=== PATIENT | female | born 1945 | race Caucasian/White ===

== ENCOUNTER 2016-04-21 08:29 | Emergency (ER) | payer MEDICARE ==
[2016-04-21 08:59] VITALS: BP 143/49
[2016-04-21] MEDS ORDERED: predniSONE TAB* 20 MG PO ONE (09:19)
[2016-04-21] MEDS ORDERED: Ipratropium 0.5MG/2.5ML NEB* 0.5 MG/2.5 ML NEB.SOLN INH ONE (09:19)
[2016-04-21] MEDS ORDERED: Albuterol 2.5 MG/3 ML NEB.SOL* (0.083%) INH ONE (09:19)
--- NOTE | 2016-04-21 10:08 | UC ---
Respiratory Complaint HPI - HPI Summary HPI Summary: 70 yo female with a 2 weeks hx of progressively worsening cough/congestion/ wheezing Particularly bad the pas 3-4 days facial pressure and pain/nasal congestion/Dyspnea on Exertion - History of Current Complaint Chief Complaint: UCRespiratory Stated Complaint: SINUS PRESSURE Time Seen by Provider: 04/21/16 09:14 Hx Obtained From: Patient Hx Last Menstrual Period: n/a Onset/Duration: Gradual Onset, Lasting Weeks Timing: Constant Severity Initially: Mild Severity Currently: Moderate Pain Intensity: 2 Pain Scale Used: 0-10 Numeric Character: Cough: Productive Aggravating Factors: Nothing Alleviating Factors: Nothing Associated Signs And Symptoms: Positive: Dyspnea - with erertion, Wheezing, Nasal Congestion, Sinus Discomfort - Allergies/Home Medications Allergies/Adverse Reactions: Allergies Allergy/AdvReac Type Severity Reaction Status Date / Time grass and dogs Allergy Unknown Uncoded 02/26/16 09:34 Reaction Details Home Medications: Home Medications Lidocaine 2% JELLY* 1 applic TOPICAL TID PRN 04/21/16 [History Confirmed ] PMH/Surg Hx/FS Hx/Imm Hx Previously Healthy: Yes Endocrine History Of: Denies: Diabetes Cardiovascular History Of: Denies: Hypertension, Pacemaker/ICD, Congestive Heart Failure Respiratory History Of: Reports: COPD, Bronchitis GI/ History Of: Denies: Renal Disease - Surgical History Surgical History: Yes Surgery Procedure, Year, and Place: Appendectomy, Tubal ligation. CATARACTS 1990 BILATERAL. spinal nerve burning - Family History Known Family History: Positive: Hypertension, Respiratory Disease - Social History Alcohol Use: Rare Alcohol Amount: 3-4 beers Substance Use Type: None Smoking Status (MU): Heavy Every Day Tobacco Smoker Type: Cigarettes Amount Used/How Often: 2 PPD Length of Time of Smoking/Using Tobacco: 52 Years Have You Smoked in the Last Year: Yes - Immunization History Most Recent Influenza Vaccination: December 2015 Review of Systems Constitutional: Negative Skin: Negative Eyes: Negative ENT: Sore Throat, Nasal Discharge Respiratory: Shortness Of Breath, Cough Cardiovascular: Negative Gastrointestinal: Negative Genitourinary: Negative Motor: Negative Neurovascular: Negative Musculoskeletal: Negative Neurological: Negative Psychological: Negative All Other Systems Reviewed And Are Negative: Yes Physical Exam Triage Information Reviewed: Yes Appearance: Well-Appearing, No Pain Distress, Well-Nourished Vital Signs: Initial Vital Signs Temp 97.7 F 04/21/16 08:50 Pulse 90 04/21/16 08:50 Resp 20 04/21/16 08:50 BP 143/49 04/21/16 08:50 Pulse Ox 87 04/21/16 08:50 Vital Signs Reviewed: Yes Eyes: Positive: Conjunctiva Clear ENT: Positive: Hearing grossly normal, Nasal congestion, Nasal drainage. Negative: Trismus, Muffled/hoarse voice Neck: Positive: Supple, Nontender Respiratory: Positive: No respiratory distress, No accessory muscle use, Wheezing Cardiovascular: Positive: RRR, No Murmur Musculoskeletal: Positive: ROM Intact, No Edema Neurological: Positive: Alert. Negative: Fatigued Psychological Exam: Normal Skin Exam: Normal UC Diagnostic Evaluation - Laboratory O2 Sat by Pulse Oximetry: 87 - low/hypoxic - Radiology Xray Interpretation: No Acute Changes Radiology Interpretation Completed By: Radiologist - c/w COPD Re-Evaluation - Re-Evaluation First Eval Re-Evaluation Time: 10:14 Change: Improved - subjectively better/ no wheezing , Pox unchanged, ?RLL rales Respiratory Course/Dx - Course Course Of Treatment: Pt informed of her low pulse OX. States she doen't feel SOB. Desires out pt rx. will recheck soon with her PMD - Differential Dx/Diagnosis Provider Diagnoses: acute exacerbation of COPD Discharge - Discharge Plan Condition: Stable Disposition: HOME Prescriptions: Azithromycin TAB* [Zithromax TAB*] 250 mg PO DAILY #6 tab Prednisone [Deltasone] 40 mg PO DAILY #8 tab Patient Education Materials: Acute Bronchitis (ED) Referrals: Jeny Moran PA [Primary Care Provider] - 4 Days Additional Instructions: use your inhaler 2 puffs 4x day for 5 days RECHECK FOR NEW OR WORSENING SYMPTOMS
--- NOTE | 2016-04-21 10:42 | RAD ---
HISTORY: Cough COMPARISONS: March 11, 2014 VIEWS: 2: Frontal dual-energy and lateral views of the chest. FINDINGS: CARDIOMEDIASTINAL SILHOUETTE: The cardiomediastinal silhouette is normal. SERENITY: The serenity are normal. PLEURA: The costophrenic angles are sharp. No pleural abnormalities are noted. LUNG PARENCHYMA: There is hyperinflation with flattening of the diaphragm and expansion of the AP diameter of the chest. ABDOMEN: The upper abdomen is clear. There is no subphrenic gas. BONES AND SOFT TISSUES: No bone or soft tissue abnormalities are noted. OTHER: None. IMPRESSION: HYPERINFLATION, CONSISTENT WITH COPD. NO ACTIVE CARDIOPULMONARY DISEASE.
== END 2016-04-21 10:48 | disposition home or self-care (01) ==
LOC: UCCORT 08:29
DX: J44.1 Chronic obstructive pulmonary disease with (acute) exacerbation (principal); F17.210 Nicotine dependence, cigarettes, uncomplicated
CPT/HCPCS: 71020; 99212; G0463; J7512; J7644

== ENCOUNTER 2016-10-11 09:06 | Emergency (ER) | payer MEDICARE ==
[2016-10-11 09:58] VITALS: BP 146/70
--- NOTE | 2016-10-11 10:00 | UC ---
Dizzy HPI HPI Summary: PT HAS HAD INTERMITTENT DIZZINESS FOR SEVERAL MONTHS. LAST NIGHT WAS SUDDENLY QUITE SEVERE. BROKE OUT INTO A SWEAT. LAID DOWN AND WENT TO SLEEP. THIS MORNING IS STILL DIZZY. NO CP. HAS SOB AND IS WORKING TO BREATHE. HAS SOME NAUSEA BUT STATES THIS IS NOT UNCOMMON FOR HER SHE HAS SOME CHRONIC "STOMACH ISSUES". PT HAS UNTREATED COPD AND STILL SMOKES. BP AT HOME WAS 158/78. PT DENIES ANY H/ O HTN. - History Of Current Complaint Chief Complaint: UCDizziness Stated Complaint: DIZZY, LIGHTHEADED Time Seen by Provider: 10/11/16 09:14 Hx Obtained From: Patient Hx Last Menstrual Period: n/a Onset/Duration: Sudden Onset, Lasting Hours, Still Present Timing: Constant Severity Initially: Moderate Severity Currently: Moderate Pain Intensity: 0 Pain Scale Used: 0-10 Numeric Character: Room Spinning Aggravating Factor(s): Nothing Alleviating Factor(s): Nothing Associated Signs And Symptoms: Positive: Diaphoresis, SOB - Allergies/Home Medications Allergies/Adverse Reactions: Allergies Allergy/AdvReac Type Severity Reaction Status Date / Time Ondansetron [From Zofran] Allergy Unknown Verified 10/11/16 09:13 Reaction Details grass and dogs Allergy Unknown Uncoded 10/11/16 09:11 Reaction Details PMH/Surg Hx/FS Hx/Imm Hx Respiratory History: COPD - Surgical History Surgical History: Yes Surgery Procedure, Year, and Place: Appendectomy, Tubal ligation. CATARACTS 1990 BILATERAL. spinal nerve burning - Family History Known Family History: Positive: Cardiac Disease, Hypertension, Respiratory Disease - Social History Alcohol Use: Rare Alcohol Amount: 3-4 beers Substance Use Type: None Smoking Status (MU): Heavy Every Day Tobacco Smoker Type: Cigarettes Amount Used/How Often: 2 PPD Length of Time of Smoking/Using Tobacco: 52 Years Have You Smoked in the Last Year: Yes - Immunization History Most Recent Influenza Vaccination: December 2015 Review of Systems Constitutional: Other - SWEATS Respiratory: Shortness Of Breath Cardiovascular: Negative Gastrointestinal: Nausea Neurological: Other - DIZZY All Other Systems Reviewed And Are Negative: Yes Physical Exam Triage Information Reviewed: Yes Appearance: No Pain Distress, Well-Nourished, Other: - BREATHING HEAVY Vital Signs: Initial Vital Signs Temp 97.7 F 10/11/16 09:09 Pulse 93 06/30/17 09:09 Resp 20 10/11/16 09:09 BP 155/58 10/11/16 09:09 Pulse Ox 96 10/11/16 09:09 Vital Signs Reviewed: Yes Eyes: Positive: Conjunctiva Clear ENT: Positive: Hearing grossly normal Neck: Positive: Supple, Nontender, No Lymphadenopathy Respiratory: Positive: Decreased breath sounds, Accessory muscle use, Plerual rub - ANTERIOR CHEST, RIGHT>LEFT Cardiovascular Exam: Normal Abdomen Description: Positive: Soft, Other: - MILDLY TENDER DIFFUSELY Musculoskeletal: Positive: No Edema Neurological: Positive: Alert Psychological: Positive: Age Appropriate Behavior Skin: Negative: rashes Diagnostics - EKG Cardiac Rate: NL - 83 bpm Cardiac Rhythm: Sinus: Normal Ectopy: None ST Segment: Non-Specific - MINIMAL ST DEPRESSION INFERIOR LEADS Dizzy Course/Dx - Differential Dx/Diagnosis Provider Diagnoses: DIZZINESS, SOB - Physician Notifications Discussed Patient Care With: DR. ROYAL - TO [facility] BY PR[facility] CAR Time Discussed With Above Provider: 10:00 Instructed by Provider To: MD Will See In ED Discharge - Discharge Plan Condition: Stable Disposition: AGAINST MEDICAL ADVICE Referrals: Jeny Moran PA [Primary Care Provider] -
== END 2016-10-11 09:58 | disposition left against medical advice (07) ==
LOC: UCCORT 09:06
DX: R42 Dizziness and giddiness (principal); R06.02 Shortness of breath; J44.9 Chronic obstructive pulmonary disease, unspecified; F17.210 Nicotine dependence, cigarettes, uncomplicated
CPT/HCPCS: 93005; 99213; G0463

== ENCOUNTER 2019-03-11 07:43 | Emergency (ER) | payer MEDICARE ==
[2019-03-11 07:55] VITALS: BP 160/62
--- NOTE | 2019-03-11 08:07 | UC ---
Respiratory Complaint HPI - HPI Summary HPI Summary: 73 year old female with oxygen dependent (3L NC) COPD presents with a days history of non-productive cough, no chest pain. Denies sinus congestion, fever, headache. - History of Current Complaint Chief Complaint: UCRespiratory Stated Complaint: UPPER RESP CONCERN Time Seen by Provider: 03/11/19 08:04 Hx Obtained From: Patient Hx Last Menstrual Period: n/a Onset/Duration: Sudden Onset, Lasting Days - one Pain Intensity: 0 - Allergies/Home Medications Allergies/Adverse Reactions: Allergies Allergy/AdvReac Type Severity Reaction Status Date / Time grass and dogs Allergy Unknown Uncoded 10/11/16 09:11 Reaction Details Home Medications: Home Medications Albuterol Sulfate 1 dose INH Q6H PRN 03/11/19 [History Confirmed 03/11/19] Albuterol Sulfate [Proair Digihaler] 2 puff INH Q6H PRN 03/11/19 [History Confirmed 03/11/19] Ascorbic Acid TAB* [Vitamin C TAB*] 1,000 mg PO DAILY 03/11/19 [History Confirmed 03/11/19] Aspirin [Jovanna Aspirin EC Low Dose 81 MG] 1 tab PO DAILY 03/11/19 [History Confirmed 03/11/19] Fluticasone Furoate [Arnuity Ellipta] 100 mcg IH DAILY 03/11/19 [History Confirmed 03/11/19] Fluticasone NASAL SPRAY 50MCG* [Flonase NASAL SPRAY 50MCG*] 1 - 2 puff INH DAILY 03/11/19 [History Confirmed 03/11/19] Magnesium Oxide [Magnesium] 500 mg PO DAILY 03/11/19 [History Confirmed 03/11/19 ] PARoxetine HCL TAB* [Paxil TAB*] 1 tab PO DAILY 03/11/19 [History Confirmed ] Pravastatin Sodium 1 tab PO QAM 03/11/19 [History Confirmed 03/11/19] Ropinirole HCl 2 tab PO BEDTIME 03/11/19 [History Confirmed 03/11/19] Tramadol HCl 1 tab PO BID 03/11/19 [History Confirmed 03/11/19] Umeclidin/Vilant 62.5 MDI(NF) [ANORO 62.5/25 Ellipta DEVICE (NF)] 1 inh INH DAILY 03/11/19 [History Confirmed 03/11/19] PMH/Surg Hx/FS Hx/Imm Hx Previously Healthy: Yes Respiratory History: COPD - Surgical History Surgical History: Yes Surgery Procedure, Year, and Place: Appendectomy. Tubal ligation. Bilateral cataracts 1989. spinal nerve burning - Family History Known Family History: Positive: Cardiac Disease, Hypertension, Respiratory Disease - Social History Alcohol Use: None Alcohol Amount: 3-4 beers Substance Use Type: None Smoking Status (MU): Former Smoker Type: Cigarettes Amount Used/How Often: 2 PPD Length of Time of Smoking/Using Tobacco: 52 Years Have You Smoked in the Last Year: Yes When Did the Patient Quit Smoking/Using Tobacco: 2016 - Immunization History Most Recent Influenza Vaccination: December 2015 Review of Systems All Other Systems Reviewed And Are Negative: Yes Constitutional: Negative: Fever, Chills, Fatigue Skin: Negative: Rash, Bruising Eyes: Positive: Negative ENT: Negative: Epistaxis, Sore Throat, Ear Ache, Nasal Discharge, Sinus Congestion, Sinus Pain/Tenderness Respiratory: Positive: Shortness Of Breath - at baseline, Cough - non-productive Cardiovascular: Negative: Palpitations, Chest Pain Gastrointestinal: Negative: Abdominal Pain, Vomiting, Diarrhea, Nausea Genitourinary: Positive: Negative Motor: Positive: Negative Neurovascular: Positive: Negative Musculoskeletal: Positive: Negative Neurological: Positive: Negative Psychological: Positive: Negative Is Patient Immunocompromised?: No Physical Exam Triage Information Reviewed: Yes Appearance: Well-Appearing, Well-Nourished Vital Signs: Initial Vital Signs Temp 96.3 F 03/11/19 07:52 Pulse 95 03/11/19 07:52 Resp 19 03/11/19 07:52 BP 160/62 03/11/19 07:52 Pulse Ox 97 03/11/19 07:52 Eye Exam: Normal ENT: Positive: Normal ENT inspection - oxygen via nasal canula Neck: Positive: Supple, Nontender, No Lymphadenopathy Respiratory: Positive: Lungs clear, No respiratory distress, Decreased breath sounds - bilaterally, E>I. Negative: Crackles, Rhonchi, Wheezing Cardiovascular: Positive: RRR, No Murmur Abdomen Description: Positive: Nontender, Soft Musculoskeletal Exam: Normal Neurological Exam: Normal Psychological Exam: Normal Skin Exam: Normal Respiratory Course/Dx - Differential Dx/Diagnosis Differential Diagnosis/HQI/PQRI: Exacerbation Of COPD Provider Diagnosis: Acute bronchitis, Blood pressure elevated without history of HTN Discharge ED - Sign-Out/Discharge Documenting (check all that apply): Patient Departure All imaging exams completed and their final reports reviewed: No Studies - Discharge Plan Condition: Stable Disposition: HOME Prescriptions: Azithromycin TAB* [Zithromax TAB (Z-BOOKER) 250 mg #6 tabs] 2 tab PO .TODAY, THEN 1 DAILY #1 booker Patient Education Materials: Acute Bronchitis (ED) Referrals: Jaye Leslie [Primary Care Provider] - Additional Instructions: Take the antibiotics as prescribed. Use your inhalers and nebulizer as prescribed. If you develop a fever, increase in shortness of breath or worsening symptoms, follow-up with your Primary Care Physician. Your blood pressure was slightly elevated today, I recommend following up with your physician for this within the next week. - Billing Disposition and Condition Condition: STABLE Disposition: Home
== END 2019-03-11 08:29 | disposition home or self-care (01) ==
LOC: UCCORT 07:43
DX: J20.9 Acute bronchitis, unspecified (principal); J44.0 Chronic obstructive pulmonary disease with (acute) lower respiratory infection; Z91.09 Other allergy status, other than to drugs and biological substances; Z79.51 Long term (current) use of inhaled steroids; Z87.891 Personal history of nicotine dependence
CPT/HCPCS: 99212; G0463

== ENCOUNTER 2019-04-08 07:51 | Emergency (ER) | payer MEDICARE ==
--- OUTSIDE RECORDS SUMMARY | 2019-04-08 08:02 | XMS REPORT | Continuity of Care Document ---
:1945 External Reference #:[id number] Author Name Alessio Whatley MD Address [address] [facility] [place] [address] Care Team Providers Name Role Phone Keisha Stewart MD - Internal Medicine Care Team Information Coning Machine Operator Arian Beltran MD - Care Team Information Coning Machine Operator [phone] Gastroenterology Vivienne Stock MD - Obstetrics & Care Team Information Coning Machine Operator Gynecology Tresa Gillespie R., MD - Emergency Care Team Information Coning Machine Operator Medicine Cornelio Lehman MD - Internal Care Team Information Coning Machine Operator Medicine Problems Active Problems Provider Date Benign neoplasm of colon Michael Chi MD Onset: 03/21/2017 Benign neoplasm of stomach Michael Chi MD Onset: 04/23/2017 Gastroesophageal reflux disease Michael Chi MD Onset: 04/23/2017 Edema Keisha Stewart MD Onset: 05/27/2017 Hyperlipidemia Keisha Stewart MD Onset: 06/12/2017 Vitamin D deficiency Keisha Stewart MD Onset: 06/12/2017 Liver function tests abnormal Keisha Stewart MD Onset: 06/12/2017 Chronic obstructive lung disease Keisha Stewart MD Onset: 06/12/2017 Arthralgia of the pelvic region and thigh Keisha Stewart MD Onset: 10/24/2017 Lumbosacral stenosis Keisha Stewart MD Onset: 10/24/2017 Constipation Arian Beltran MD Onset: 01/20/2018 Dizziness and giddiness Aida Bryant PA Onset: 05/05/2018 Social History Type Date Description Comments Sex Unknown Tobacco Use Start: Unknown End: Former Cigarette Smoker Unknown 2 Packs Daily Smokeless Tobacco Never Used Smokeless Tobacco ETOH Use Occasionally consumes on the weekends beer Recreational Drug Use Denies Drug Use Tobacco Use Start: Unknown End: Patient is a former smoker Smoking Status Reviewed: 03/19/19 Patient is a former smoker Exercise Type/Frequency Does not exercise Allergies, Adverse Reactions, Alerts Description No Known Drug Allergies Medications Active Medications SIG Qnty Indications Ordering Date Provider Nebulizer dispense one kit 1units Cortney, 01/19/2019 Kit/Tubing/Mouthpiece Dx: COPD MD Rodriguez Kit Diclofenac Sodium apply 2-3 gms to 100gm M54.6 Keisha Stewart, 11/03/2018 3% back two times a MD Gel day Trazodone HCL 1 tablet by mouth 60tabs Keisha Stewart, 07/31/2018 100mg at at bedtime MD Tablets Triamcinolone apply to neck, 80gm R21 Keisha Stewart, 07/27/2018 Acetonide back, arms, MD 0.1% Cream abdomen and legs daily as needed for itching. Ropinirole HCL take 2 at night 60tabs Alessio Whatley, 07/27/2018 0.25mg before bedtime MD Tablets Gabapentin take 1 capsule by 180caps G25.81 Keisha Stewart, 05/06/2018 300mg mouth Every MD Capsules Afternoon And 2 Capsules AT Bedtime Anoro Ellipta 1 inhalation 90units J44.9 Toby Blanchard, 05/05/2018 every day. 62.5-25mcg/Inh Aerosol Magnesium Oil rub on legs once Gagen, 04/27/2018 daily. MS Ashley, [employer] OPERATOR-C, CNM Pravastatin Sodium take 1 tablet by 30tabs Keisha Stewart, 06/12/2017 20mg mouth every in MD Tablets the morning Proair HFA inhale 2 puffs by 8.5units J44.9 Toby Blanchard, 06/02/2017 108(90Base) mouth every 6 MD mcg/Act Aerosol hours if needed for shortness of breath Flonase spray 1-2 sprays 16units Keisha Stewart, 03/12/2017 50mcg/Act in each nostril Suspension once daily Arnuity Ellipta inhale 1 puff 30units J44.9 Toby Blanchard, 02/03/2017 once daily Rinse 100mcg/Act Aerosol mouth after use Ranitidine 150 1 by mouth every 90tabs Keisha Stewart, 11/06/2016 Maximum Strength day 150mg Tablets Omeprazole take one capsule 90caps Nayeli, 11/06/2016 20mg by mouth every MD Danisha, Capsules DR day 30 min. PHD before breakfast Oxygen Use 3 L/min. Toby Blanchard, 10/29/2016 Diagnosis: COPD Albuterol Sulfate use 1 vial every 150ml Toby Blanchard, 10/23/2016 6 hours as needed 0.63mg/3ML Nebulizer for shortness of breath. Aspirin Adult Low 1 by mouth every Unknown Strength day 81mg Chewtabs Vitamin C 1 by mouth every Unknown 1000mg day Tablets OTC Allergy 1 po daily Unknown Tramadol HCL take 1 tablet po Unknown 50mg 4 times daily for Tablets pain Vitamin D 1 by mouth every Unknown 2000Unit day Capsules OTC Womens Laxative as needed Unknown Multi For Her 1 tab by mouth Unknown Tablets every daily Paroxetine HCL 1 by mouth every Vivienne Stock 10mg day MD [place] Tablets Nyamyc prn Vivienne Stock [id number] MD [place]na Powder Magnesium 1 by mouth every Unknown 500mg other day Capsules Metronidazole Unknown 0.75% Gel History Medications Venlafaxine HCL ER take one at hs 30caps F33.1 Keisha Stewart MD 2018 - 10/26/2018 37.5mg Caps ER 24HR Medications Administered in Office Medication SIG Qnty Indications Ordering Provider Date Depomedrol 40mg/1cc Stacey Giron MD 02/04/2019 (methylprednisolone acetate) Injection Immunizations CPT Code Status Date Vaccine Reaction Lot # 21264 Given 01/27/2019 Shingrix Zoster Vaccine (HZV), received at RA/222 Recombinant, Subunit, Adjuvante 39529 Given 01/19/2019 Influenza Virus Vaccine, Quadrivalent, 36 Mos+, .5ML [id number] Given 07/27/2018 Pneumococcal Conjugate Vaccine received at RA/222 13 Valent For Intramuscular Use U-Flu Given 01/09/2018 Influenza,Unspecified U-Pneum Given 02/07/2017 Pneumococcal,Unspecified [id number] Given 02/07/2017 Influenza High Dose [id number] Vital Signs Date Vital Result Comment 03/19/2019 10:15am BP Systolic Sitting Left Arm 154 mmHg BP Diastolic Sitting Left Arm 60 mmHg Body Temperature 97.8 F Heart Rate 97 /min Respiratory Rate 30 /min Height 64 inches 5'4" Weight 180.00 lb BMI (Body Mass Index) 30.9 kg/m2 BSA (Body Surface Area) 1.87 m2 [place] body weight in kilograms 54 kg O2 % BldC Oximetry 97 % on 3L O2 02/04/2019 10:08am BP Systolic Sitting Left Arm 146 mmHg BP Diastolic Sitting Left Arm 60 mmHg Respiratory Rate 22 /min Weight 180.00 lb Results Test Acquired Facility Test Result H/L Range Note Date Serum or plasma 11/02/2018 N2N/CCD Import Serum or plasma 6 Low 8-16 anion gap anion gap Co2 SerPl-sCnc 11/02/2018 N2N/CCD Import Co2 SerPl-sCnc 29 21-32 Serum or plasma 11/02/2018 N2N/CCD Import Serum or plasma 104 98-107 chloride chloride measurement measurement Serum or plasma 11/02/2018 N2N/CCD Import Serum or plasma 4.2 3.5-5.1 potassium potassium measurement measurement Sodium SerPl-sCnc 11/02/2018 N2N/CCD Import Sodium SerPl-sCnc 139 136- 145 Serum or plasma 11/02/2018 N2N/CCD Import Serum or plasma 16.0 urea urea nitrogen/creatinine nitrogen/creatinine mass rati mass ratio GFR/Bsa pred.black 11/02/2018 N2N/CCD Import GFR/Bsa pred.black >60 >60 SerPl MDRD-ArVRat SerPl MDRD-ArVRat Estimated 11/02/2018 N2N/CCD Import Estimated 57 >60 glomerular glomerular filtration rate filtration rate (GFR) non-Afr (GFR) non- Serum or plasma 11/02/2018 N2N/CCD Import Serum or plasma 1.0 0.6-1.3 creatinine creatinine measurement measurement (mass/volum (mass/volume) Serum or plasma 11/02/2018 N2N/CCD Import Serum or plasma 16 7-18 urea nitrogen urea nitrogen measurement measurement (mass/vo (mass/volume) Serum or plasma 11/02/2018 N2N/CCD Import Serum or plasma 93 74-106 glucose measurement glucose measurement (mass/volume) (mass/volume) Fibrin D-dimer Feu 11/02/2018 N2N/CCD Import Fibrin D-dimer Feu 1.09 measurement in measurement in platelet poor pl platelet poor plasma (mass/volume) Automated blood 11/02/2018 N2N/CCD Import Automated blood 0.00 nucleated nucleated erythrocyte count erythrocyte count (count (count/volume) Serum or plasma 11/02/2018 N2N/CCD Import Serum or plasma 8.9 8.5-10. calcium measurement calcium measurement 1 (mass/volume) (mass/volume) Serum or plasma 11/02/2018 N2N/CCD Import Serum or plasma 7.5 6.4-8.2 protein measurement protein measurement (mass/volume) (mass/volume) Serum or plasma 11/02/2018 N2N/CCD Import Serum or plasma 3.4 3.4-5.0 albumin measurement albumin measurement (mass/volume) (mass/volume) Serum globulin 11/02/2018 N2N/CCD Import Serum globulin 4.1 1.9-4.3 measurement by measurement by calculation calculation (mass/vo (mass/volume) Serum or plasma 11/02/2018 N2N/CCD Import Serum or plasma 0.8 albumin/globulin albumin/globulin mass ratio mass ratio Serum or plasma 11/02/2018 N2N/CCD Import Serum or plasma 0.5 0.2-1.0 total bilirubin total bilirubin measurement (mass/ measurement (mass/volume) Serum or plasma 11/02/2018 N2N/CCD Import Serum or plasma 14 Low 15-37 aspartate aspartate aminotransferase aminotransferase measure measurement (enzymatic activity/volume) Serum or plasma 11/02/2018 N2N/CCD Import Serum or plasma 23 12-78 alanine alanine aminotransferase aminotransferase measureme measurement (enzymatic activity/volume) Serum or plasma 11/02/2018 N2N/CCD Import Serum or plasma 128 High 45- 117 alkaline alkaline phosphatase phosphatase measurement ( measurement (enzymatic activity/volume) Aot Request 11/02/2018 [facility] Aot Request Test(s) 1, [address] [place] [address] [phone] Tests to be added: ddimer * Miscellaneous 11/02/2018 N2N/CCD Import * Miscellaneous Test(s) studies (set) studies (set) added CBC W/Automated 11/02/2018 [facility] White Blood Count 11.8 K/uL High 3.1-[address] [place] [address] [phone] Red Blood Count 3.87 M/uL Low 3.90-5.40 Hemoglobin 12.2 gm/dL Normal 11.6-15.8 Hematocrit 36.9 % Normal 36.0-46.1 Mean Cell Volume 95.3 fl Normal 80.9-99.0 Mean Corpuscular HGB 31.5 pg Normal 25.9-32.7 Mean Corpuscular HGB Conc 33.1 g/dL Normal 30.8-34.3 Platelet Count 237 K/uL Normal 155-360 Red Cell Distri Width SD 47.1 fl High 36-47 Red Cell Distri Width %CV 13.5 % Normal 11.7-14.4 Mean Platelet Volume 12.3 fl Normal 8.9-12.4 Neut% 74.7 % High 40.4-72.8 Lymph % 11.3 % Low 20.0-42.0 [place] % 9.8 % Normal 4.3-13.2 Eo% 2.9 % Normal 0.0-6.6 Bas% 0.6 % Normal 0.0-1.1 Immature Grans 0.7 % Normal 0.0-5.0 NRBC % 0.0 /100WBC < 10/ 100 WBC Neut# 8.82 K/uL High 1.8-7.0 Lymph # 1.34 K/uL Normal 1.0-4.0 Churchill # 1.16 K/uL High 0.3-0.9 Eos # 0.34 K/uL Normal 0.0-0.5 Baso # 0.07 K/uL Normal 0.0-0.1 Immature Grans Absolute 0.08 K/uL NRBC # 0.00 K/uL Laboratory test 11/02/2018 [facility] D-Dimer, 1.09 Critical [address] Quantitative ug/[place] [address] [phone] Comprehensive 11/02/2018 [facility] Glucose 93 mg/dL Normal 74- Metabolic Panel [address] [place] [address] [phone] BUN 16 mg/dL Normal 7-18 Creatinine 1.0 mg/dL Normal 0.6-1.3 Glom Filtration Rate, Estimate 57 mL/min >60 If >60 mL/min >60 4 BUN/Creat 16.0 ratio Sodium 139 mmol/L Normal 136-145 Potassium 4.2 mmol/L Normal 3.5-5.1 Chloride 104 mmol/L Normal 98-107 Carbon Dioxide 29 mmol/L Normal 21-32 Anion Gap 6 mEq/L Low 8-16 Calcium 8.9 mg/dL Normal 8.5-10.1 Total Protein 7.5 g/dL Normal 6.4-8.2 Albumin 3.4 g/dL Normal 3.4-5.0 Globulin 4.1 g/dL Normal 1.9-4.3 Alb/Glob 0.8 ratio Bilirubin,Total 0.5 mg/dL Normal 0.2-1.0 Sgot/Ast 14 U/L Low 15-37 5 SGPT/Alt 23 U/L Normal 12-78 Alkaline Phosphatase 128 U/L High 45-117 Laboratory test 11/02/2018 [facility] Troponin-I < 0.015 [address] ng/[place] [address] [phone] Automated 11/02/2018 N2N/CCD Import Automated 11.8 High 3.1-10 leukocyte count leukocyte count .7 (number/volume) (number/volume) Blood 11/02/2018 N2N/CCD Import Blood 3.87 Low 3.90-5 erythrocytes erythrocytes .40 automated count automated count (number/volume) (number/volume) Blood hemoglobin 11/02/2018 N2N/CCD Import Blood hemoglobin 12.2 11.6-1 measurement measurement 5.8 (mass/volume) (mass/volume) Hct VFr Bld Auto 11/02/2018 N2N/CCD Import Hct VFr Bld Auto 36.9 36.0-4 6.1 Automated 11/02/2018 N2N/CCD Import Automated 95.3 80.9-9 erythrocyte mean erythrocyte mean 9.0 corpuscular corpuscular volume (MCV volume (MCV) measurement Automated 11/02/2018 N2N/CCD Import Automated 31.5 25.9-3 erythrocyte mean erythrocyte mean 2.7 corpuscular corpuscular hemoglobin hemoglobin (mass per erythrocyte) Automated 11/02/2018 N2N/CCD Import Automated 33.1 30.8-3 erythrocyte mean erythrocyte mean 4.3 corpuscular corpuscular hemoglobin hemoglobin concentration measurement (mass/volume) Automated blood 11/02/2018 N2N/CCD Import Automated blood 237 155-36 platelet count platelet count 0 (count/volume) (count/volume) Automated 11/02/2018 N2N/CCD Import Automated 47.1 High 36-47 erythrocyte erythrocyte distribution distribution width width Automated blood 11/02/2018 N2N/CCD Import Automated blood 0.0 < 10/ nucleated nucleated 100 erythrocyte count erythrocyte WBC as per count as percentage of total leukocytes Automated blood 11/02/2018 N2N/CCD Import Automated blood 0.7 0.0-5. immature immature 0 granulocyte count granulocyte as perc count as percentage of total leukocytes Absolute 11/02/2018 N2N/CCD Import Absolute 8.82 High 1.8-7. neutrophil count neutrophil count 0 Automated blood 11/02/2018 N2N/CCD Import Automated blood 1.34 1.0-4. lymphocyte count lymphocyte count 0 (number/volume) (number/volume) Blood monocytes 11/02/2018 N2N/CCD Import Blood monocytes 1.16 High 0.3- 0. automated count automated count 9 (number/volume) (number/volume) Automated blood 11/02/2018 N2N/CCD Import Automated blood 0.34 0.0-0. eosinophil count eosinophil count 5 Automated blood 11/02/2018 N2N/CCD Import Automated blood 0.07 0.0-0. basophil count basophil count 1 (number/volume) (number/volume) Automated blood 11/02/2018 N2N/CCD Import Automated blood 0.08 immature immature granulocyte count granulocyte (number count (number/volume) Automated 11/02/2018 N2N/CCD Import Automated 0.6 0.0-1. basophil % basophil % 1 Automated 11/02/2018 N2N/CCD Import Automated 2.9 0.0-6. eosinophil % eosinophil % 6 Automated 11/02/2018 N2N/CCD Import Automated 9.8 4.3-13 monocyte % monocyte % .2 Automated blood 11/02/2018 N2N/CCD Import Automated blood 11.3 Low 20.0- 4 lymphocytes/100 lymphocytes/100 2.0 leukocytes leukocytes Automated blood 11/02/2018 N2N/CCD Import Automated blood 74.7 High 40.4- 7 neutrophils/100 neutrophils/100 2.8 leukocytes leukocytes Automated blood 11/02/2018 N2N/CCD Import Automated blood 12.3 8.9-12 platelet mean platelet mean .4 volume volume measurement measurement Automated 11/02/2018 N2N/CCD Import Automated 13.5 11.7-1 erythrocyte erythrocyte 4.4 distribution distribution width ratio width ratio Comprehensive 10/24/2018 [facility] Sodium 141 Normal 135-14 Metabolic Panel [phone] mmol/L 5 Potassium 4.6 mmol/L Normal 3.5-5.0 Chloride 106 mmol/L Normal 101-111 Co2 Carbon Dioxide 26 mmol/L Normal 22-32 Anion Gap 9 mmol/L Normal 2-11 Glucose 102 mg/dL High 70-100 Blood Urea Nitrogen 19 mg/dL Normal 6-24 Creatinine 0.94 mg/dL Normal 0.51-0.95 BUN/Creatinine Ratio 20.2 High 8-20 Calcium 9.4 mg/dL Normal 8.6-10.3 Total Protein 6.6 g/dL Normal 6.4-8.9 Albumin 3.9 g/dL Normal 3.2-5.2 Globulin 2.7 g/dL Normal 2-4 Albumin/Globulin Ratio 1.4 Normal 1-3 Total Bilirubin 0.40 mg/dL Normal 0.2-1.0 Alkaline Phosphatase 107 U/L High 34-104 Alt 19 U/L Normal 7-52 Ast 19 U/L Normal 13-39 Egfr Non- 58.1 >60 Egfr 70.2 >60 7 Laboratory test 10/24/2018 [facility] LDL Cholesterol 117 mg/dL 8 finding [phone] Direct Folate > 20.00 ng/mL >3.99 Vitamin B12 318 pg/mL Normal 180-914 9 CBC W/Automated 10/24/2018 [facility] White 10.4 Normal 3.5-10.8 Diff [phone] Blood 10^3/uL Count Red Blood Count 4.05 10^6/uL Normal 3.70-4.87 Hemoglobin 12.6 g/dL Normal 12.0-16.0 Hematocrit 37 % Normal 35-47 Mean Corpuscular Volume 92 fL Normal 80-97 Mean Corpuscular Hemoglobin 31 pg Normal 27-31 Mean Corpuscular HGB Conc 34 g/dL Normal 31-36 Red Cell Distribution Width 14 % Normal 10-15 Platelet Count 262 10^3/uL Normal 150-450 Mean Platelet Volume 10.4 fL Normal 7.4-10.4 Abs Neutrophils 7.6 10^3/uL Normal 1.5-7.7 Abs Lymphocytes 1.3 10^3/uL Normal 1.0-4.8 Abs Monocytes 0.9 10^3/uL High 0-0.8 Abs Eosinophils 0.4 10^3/uL Normal 0-0.6 Abs Basophils 0.1 10^3/uL Normal 0-0.2 Abs Nucleated RBC 0.0 10^3/uL Granulocyte % 73.8 % Lymphocyte % 12.2 % Monocyte % 9.1 % Eosinophil % 4.2 % Basophil % 0.7 % Nucleated Red Blood Cells % 0.0 Laboratory test 10/13/2018 [facility] Folate > 20.00 ng/mL >3.99 finding [phone] Vitamin B12 381 pg/mL Normal 180-914 10 Lipid Profile 10/13/2018 [facility] Triglycerides 87 mg/dL 11 (Trig/Chol/HDL) [phone] Cholesterol 182 mg/dL 12 HDL Cholesterol 66.5 mg/dL 13 LDL Cholesterol 98 mg/dL 14 Comp Metabolic 10/13/2018 [facility] Sodium 142 mmol/ L Normal 135-145 Panel [phone] Chloride 107 mmol/L Normal 101-111 Co2 Carbon Dioxide 29 mmol/L Normal 22-32 Glucose 98 mg/dL Normal 70-100 Blood Urea Nitrogen 18 mg/dL Normal 6-24 Creatinine 0.90 mg/dL Normal 0.51-0.95 BUN/Creatinine Ratio 20.0 Normal 8-20 Calcium 9.3 mg/dL Normal 8.6-10.3 Total Protein 6.6 g/dL Normal 6.4-8.9 Albumin 3.9 g/dL Normal 3.2-5.2 Globulin 2.7 g/dL Normal 2-4 Albumin/Globulin Ratio 1.4 Normal 1-3 Total Bilirubin 0.40 mg/dL Normal 0.2-1.0 Alkaline Phosphatase 129 U/L High 34-104 Alt 21 U/L Normal 7-52 Ast 20 U/L Normal 13-39 Egfr Non- 61.0 >60 Egfr 73.9 >60 15 Potassium 5.1 mmol/L High 3.5-5.0 Anion Gap 6 mmol/L Normal 2-11 CBC Auto 10/13/2018 [facility] White Blood 11.2 10^3/ uL High 3.5-10.8 Diff [phone] Count Red Blood Count 4.03 10^6/uL Normal 3.70-4.87 Hemoglobin 12.2 g/dL Normal 12.0-16.0 Hematocrit 37 % Normal 35-47 Mean Corpuscular Volume 93 fL Normal 80-97 Mean Corpuscular Hemoglobin 30 pg Normal 27-31 Mean Corpuscular HGB Conc 33 g/dL Normal 31-36 Red Cell Distribution Width 14 % Normal 10-15 Platelet Count 263 10^3/uL Normal 150-450 Mean Platelet Volume 10.0 fL Normal 7.4-10.4 Abs Neutrophils 8.3 10^3/uL High 1.5-7.7 Abs Lymphocytes 1.3 10^3/uL Normal 1.0-4.8 Abs Monocytes 1.0 10^3/uL High 0-0.8 Abs Eosinophils 0.5 10^3/uL Normal 0-0.6 Abs Basophils 0.1 10^3/uL Normal 0-0.2 Abs Nucleated RBC 0.0 10^3/uL Granulocyte % 74.5 % Lymphocyte % 11.5 % Monocyte % 8.8 % Eosinophil % 4.5 % Basophil % 0.7 % Nucleated Red Blood Cells % 0.0 Louisa species 10/02/2018 N2N/CCD Import Louisa species Negative [ Negative] Dna probe Dna probe Lab Results 10/02/2018 N2N/CCD Import Gardnerella Dna Positive High [ Negative] Probe Trichomonas 10/02/2018 N2N/CCD Import Trichomonas Negative [Negative] vaginalis Dna vaginalis Dna detection by detection by probe probe and t and target amplification method 1 TROUBLE BREATHING 2 Tests: ddimer Instructions: 3 <=0.49 ug/mL - Low likelihood of DIC, DVT or Pulmonary Embolism >0.49 ug/mL - Additional testing should be done to rule out DIC, DVT, or Pulmonary embolism as clinically indicated. ([facility] has established a 97.89% negative predictive value for thrombotic disease when a cutoff value of 0.5 ug/mL is used.) 4 Note: Persistent reduction for 3 months or more in an eGFR <60 mL/min/1.73 m2 defines CKD. Patients with eGFR values >/=60 mL/min/1.73 m2 may also have CKD if evidence of persistent proteinuria is present. The original MDRD equation for estimated GFR is not valid for patients less than 18 years of age. Additional information may be found at www.kdoqi.org. 5 Values below the stated reference ranges of AST and ALT can be seen in normal populations. Clinical correlation is suggested. 6 0.0 - 0.045 ng/mL: Normal 0.046 - 0.5 ng/mL: Suggestive 0.6 - 1.5 ng/mL: Consistent 7 Because ethnic data is not always readily available, this report includes an eGFR for both -Americans and non- Americans. The National Kidney Disease Education Program (NKDEP) does not endorse the use of the MDRD equation for patients that are not between the ages of 18 and 70, are , have extremes of body size, muscle mass, or nutritional status, or are non- or non-. According to the National Kidney Foundation, irrespective of diagnosis, the stage of the disease is based on the level of kidney function: Stage Description GFR(mL/min/1.73 m(2)) 1 Kidney damage with normal or decreased GFR 90 2 Kidney damage with mild decrease in GFR 60-89 3 Moderate decrease in GFR 30-59 4 Severe decrease in GFR 15-29 5 Kidney failure <15 (or dialysis) 8 Desirable: <100 Near Optimal: 100-129 Borderline High: 130-159 High: 160-189 Very High: >189 9 Normal Range 180 to 914 Indeterminate Range 145 to 180 Deficient Range <145 10 Normal Range 180 to 914 Indeterminate Range 145 to 180 Deficient Range <145 11 Desirable: <150 Borderline High: 150-199 High: 200-499 Very High: >500 12 Desirable: <200 Borderline High: 200-239 High: >239 13 Low: <40 Desirable: 40-60 High: >60 14 Desirable: <100 Near Optimal: 100-129 Borderline High: 130-159 High: 160-189 Very High: >189 15 Because ethnic data is not always readily available, this report includes an eGFR for both -Americans and non- Americans. The National Kidney Disease Education Program (NKDEP) does not endorse the use of the MDRD equation for patients that are not between the ages of 18 and 70, are , have extremes of body size, muscle mass, or nutritional status, or are non- or non-. According to the National Kidney Foundation, irrespective of diagnosis, the stage of the disease is based on the level of kidney function: Stage Description GFR(mL/min/1.73 m(2)) 1 Kidney damage with normal or decreased GFR 90 2 Kidney damage with mild decrease in GFR 60-89 3 Moderate decrease in GFR 30-59 4 Severe decrease in GFR 15-29 5 Kidney failure <15 (or dialysis) Procedures Date Code Description Status 02/04/2019 34528 Radiology, Elbow Complete Completed 02/04/2019 76659 Injection:Tendon Sheath,Lig. Cyst Completed 12/15/2018 [id number] Mammogram Completed 10/26/2018 05847 Brief Emotional/Behav Assessment W/ Scoring Doc Per Completed Standard Inst 10/22/2018 47453 Spirometry Completed 07/26/2014 [id number] Colonoscopy Completed 01/31/2011 [id number] Colonoscopy Completed 06/18/2005 [id number] Colonoscopy Completed 08/25/2000 [id number] Colonoscopy Completed Medical Devices Description No Information Available Encounters Type Date Location Provider Dx Diagnosis Office Visit 02/04/2019 Orthopaedic Office Stacey Giron, M25.522 Pain in left 10:00a elbow M77.12 Lateral epicondylitis, left elbow M19.012 Primary osteoarthritis, left shoulder Office Visit 01/29/2019 9:30a Walk In [facility], M25.512 Pain in left Clinic POLY Carranza shoulder T80.62xA Other serum reaction due to vaccination, initial encounter Office Visit 01/19/2019 10:00a Pulmonology Aida Bryant, J44.9 Chronic obstructive PA pulmonary disease, unspecified K21.9 Gastro-esophageal reflux disease without esophagitis R91.1 Solitary pulmonary nodule Office Visit 12/04/2018 11:30a Primary Care Jaye Ness M54.6 Pain in thoracic Office H., PA spine I10 Essential (primary) hypertension N18.3 Chronic kidney disease, stage 3 (moderate) Z12.31 Encntr screen mammogram for malignant neoplasm of breast Office Visit 11/03/2018 1:30p Primary Care Ashley Slaughter, M54.6 Pain in Office MS, [employer] O[employer]-C, CNM thoracic spine I10 Essential (primary) hypertension Office Visit 10/26/2018 9:00a Primary Care Ashley Slaughter, J44.9 Chronic Office MS, [employer] OPERATOR-C, CNM obstructive pulmonary disease, unspecified N18.3 Chronic kidney disease, stage 3 (moderate) G25.81 Restless legs syndrome E87.5 Hyperkalemia E78.5 Hyperlipidemia, unspecified E55.9 Vitamin D deficiency, unspecified F33.1 Major depressive disorder, recurrent, moderate Office Visit 10/08/2018 10:00a Arian Starr MD R10.10 Upper abdominal pain, unspecified Assessments Date Code Description Provider 03/19/2019 J44.9 Chronic obstructive pulmonary Alessio Whatley MD disease, unspecified 03/19/2019 K21.9 Gastro-esophageal reflux disease Alessio Whatley MD without esophagitis 03/19/2019 M54.6 Pain in thoracic spine Alessio Whatley MD 03/19/2019 I10 Essential (primary) hypertension Alessio Whatley MD 03/19/2019 E78.5 Hyperlipidemia, unspecified Alessio Whatley MD 03/19/2019 R61 Generalized hyperhidrosis Alessio Whatley MD 02/04/2019 M25.522 Pain in left elbow Stacey Giron MD 02/04/2019 M77.12 Lateral epicondylitis, left elbow Stacey Giron MD 02/04/2019 M19.012 Primary osteoarthritis, left Stacey Giron MD shoulder 01/29/2019 M25.512 Pain in left shoulder Tayla Looney FNP 01/29/2019 T80.62xA Other serum reaction due to Tayla Looney FNP vaccination, initial encounter 01/19/2019 J44.9 Chronic obstructive pulmonary Walrath, Aida, PA disease, unspecified 01/19/2019 K21.9 Gastro-esophageal reflux disease Aida Bryant PA without esophagitis 01/19/2019 R91.1 Solitary pulmonary nodule Aida Bryant PA 12/04/2018 M54.6 Pain in thoracic spine Jaye Ness PA 12/04/2018 I10 Essential (primary) hypertension Jaye Ness PA 12/04/2018 N18.3 Chronic kidney disease, stage 3 Jaye Ness PA (moderate) 12/04/2018 Z12.31 Encounter for screening mammogram Jaye Ness PA for malignant neoplasm of breast 11/03/2018 M54.6 Pain in thoracic spine Ashley Slaughter, MS, INGOT CAR OPERATOR-C, CNM 11/03/2018 I10 Essential (primary) hypertension Ashley Slaughter, MS, INGOT CAR OPERATOR-C , CNM 10/26/2018 J44.9 Chronic obstructive pulmonary Kasandra, Ashley, MS, INGOT CAR OPERATOR-C, disease, unspecified CN 10/26/2018 N18.3 Chronic kidney disease, stage 3 Kasandra, Ashley, MS, INGOT CAR OPERATOR- C, (moderate) CN 10/26/2018 G25.81 Restless legs syndrome Kasandra, Ashley, MS, INGOT CAR OPERATOR-C, CN 10/26/2018 E87.5 Hyperkalemia Radha Slaughterline, MS, INGOT CAR OPERATOR-C, CN 10/26/2018 E78.5 Hyperlipidemia, unspecified Gaghome, Ashley, MS, INGOT CAR OPERATOR-C, CNM 10/26/2018 E55.9 Vitamin D deficiency, unspecified Gaghome, Ashley, MS, INGOT CAR OPERATOR-C, CNM 10/26/2018 F33.1 Major depressive disorder, Ashley Slaughter, MS, INGOT CAR OPERATOR-C, recurrent, moderate CN 10/22/2018 J44.9 Chronic obstructive pulmonary Toby Blanchard MD disease, unspecified 10/08/2018 R10.10 Upper abdominal pain, unspecified Arian Beltran MD Plan of Treatment Future Appointment(s):06/18/2019 10:00 am - Alessio Whatley MD at Primary Care Hbfjtd2005/06/2019 9:30 am - Stacey Giron MD at Orthopaedic Eaqvdk5407/21/2019 1:00 pm - Rodriguez Barr MD at Sxrmqramhdt51/06/2019 - Alessio Whatley MDJ44.9 Chronic obstructive pulmonary disease, unspecifiedComments:- Continue with current inhalers.- Protect yourself from others with respiratory illness.- Stay wellhydrated and use good hand hygiene.- Call for office visit if you have acute symptoms.K21.9 Gastro-esophageal reflux disease without esophagitisComments:- GERD well managed, continue with current medications.- Follow up with Dr Rocha as [id number] Pain in thoracic spineComments:- Follow up with [facility] as scheduled next Friday. Let us know about any medication changes.I10 Essential (primary) hypertensionComments:- BP has been slightly above <140/80 goal for the last couple visits. Discussed this with patient and she does not want to start a medication for BP.E78.5 Hyperlipidemia , unspecifiedComments:- 10/2018 labs Total chol: 182 Tri HDL: 66.5 LDL: 98- Continue to low fat diet.- Continue to work on weight [id number] Generalized hyperhidrosisComments:- Get labs prior to next visit.AllComments:- Inquire about bone density screening next visitFollow up:3 months Functional Status Description No Information Available Mental Status Description No Information Available Referrals Refer to Reason for Referral Status Appt Date Stacey Giron MD Left shoulder pain, previous humorous Scheduled [address], [address] [place] [address] [phone] [facility] Lumbar Spinal stenosis with Closed Radiculopathy pls sent last spine and wellness notes 11/19/18 faxed notes... LE 11/19/18 faxed notes... LE
--- OUTSIDE RECORDS SUMMARY | 2019-04-08 08:02 | XMS REPORT | Continuity of Care Document ---
:1945 External Reference #:[id number] Author Name Alessio Whatley MD Address [address] [facility] [place] [address] Care Team Providers Name Role Phone Keisha Stewart MD - Internal Medicine Care Team Information Transmission Builder [phone] Arian Beltran MD - Care Team Information Transmission Builder [phone] Gastroenterology Vivienne Stock MD - Obstetrics & Care Team Information Transmission Builder [phone] Gynecology Tresa Gillespie R., MD - Emergency Care Team Information Transmission Builder [phone] Medicine Cornelio Lehman MD - Internal Care Team Information Transmission Builder [phone] Medicine Problems Active Problems Provider Date Benign [...] Trazodone HCL 1 tablet by mouth 60tabs Sharmila Stewarta, 07/31/2018 100mg at at bedtime MD Tablets [...] legs once Gagen, 04/27/2018 daily. MS Ashley, HEAD CORRECTION OFFICER-C, CNM Pravastatin Sodium take 1 tablet by 30tabs Alessio Whatley, 06/12/2017 20mg mouth every in MD Tablets [...] MD Marianna Tablets Nyamyc prn Vivienne Stock [id number]/GM MD Marianna Powder Magnesium 1 by mouth [...] Code Status Date Vaccine Reaction Lot # 82607 Given 01/27/2019 Shingrix Zoster Vaccine (HZV), received at RA/222 Recombinant, Subunit, Adjuvante 80842 Given 01/19/2019 Influenza Virus Vaccine, Quadrivalent, 36 Mos+, .5ML [id number] Given 07/27/2018 Pneumococcal Conjugate Vaccine received at RA/222 13 Valent For Intramuscular Use U-Flu Given 01/09/2018 Influenza,Unspecified U-Pneum Given 02/07/2017 Pneumococcal,Unspecified [id number] Given 02/07/2017 Influenza High Dose [id number] Vital Signs Date Vital Result Comment 03/19/2019 10:15am BP Systolic Sitting Left Arm 154 mmHg BP Diastolic Sitting Left Arm 60 mmHg Body Temperature 97.8 F Heart Rate 97 /min Respiratory Rate 30 /min Height 64 inches 5'4" Weight 180.00 lb BMI (Body Mass Index) 30.9 kg/m2 BSA (Body Surface Area) 1.87 m2 [place] body weight in kilograms 54 kg O2 % BldC Oximetry 97 % on 3L O2 02/04/2019 10:08am BP Systolic Sitting Left Arm 146 mmHg BP Diastolic Sitting Left Arm 60 mmHg Respiratory Rate 22 /min Weight 180.00 lb Results Test Acquired Date Facility Test Result H/L Range Note CBC Auto 03/22/2019 [facility] White Blood 16.3 10^3/ uL High 3.5-10.8 Diff [phone] Count Red Blood Count 3.81 10^6/uL Normal 3.70-4.87 Hemoglobin 11.6 g/dL Low 12.0-16.0 Hematocrit 35 % Normal 35-47 Mean Corpuscular Volume 93 fL Normal 80-97 Mean Corpuscular Hemoglobin 30 pg Normal 27-31 Mean Corpuscular HGB Conc 33 g/dL Normal 31-36 Red Cell Distribution Width 14 % Normal 10-15 Platelet Count 228 10^3/uL Normal 150-450 Mean Platelet Volume 9.8 fL Normal 7.4-10.4 Abs Neutrophils 13.2 10^3/uL High 1.5-7.7 Abs Lymphocytes 1.4 10^3/uL Normal 1.0-4.8 Abs Monocytes 1.2 10^3/uL High 0-0.8 Abs Eosinophils 0.4 10^3/uL Normal 0-0.6 Abs Basophils 0.1 10^3/uL Normal 0-0.2 Abs Nucleated RBC 0.0 10^3/uL Granulocyte % 81.1 % Lymphocyte % 8.6 % Monocyte % 7.3 % Eosinophil % 2.4 % Basophil % 0.6 % Nucleated Red Blood Cells % 0.1 Comp Metabolic 03/22/2019 [facility] Sodium 141 mmol/ L Normal 135-145 Panel [phone] Potassium 4.5 mmol/L Normal 3.5-5.0 Chloride 104 mmol/L Normal 101-111 Co2 Carbon Dioxide 28 mmol/L Normal 22-32 Anion Gap 9 mmol/L Normal 2-11 Glucose 113 mg/dL High 70-100 Blood Urea Nitrogen 17 mg/dL Normal 6-24 Creatinine 0.90 mg/dL Normal 0.51-0.95 BUN/Creatinine Ratio 18.9 Normal 8-20 Calcium 9.1 mg/dL Normal 8.6-10.3 Total Protein 6.2 g/dL Low 6.4-8.9 Albumin 3.8 g/dL Normal 3.2-5.2 Globulin 2.4 g/dL Normal 2-4 Albumin/Globulin Ratio 1.6 Normal 1-3 Total Bilirubin 0.60 mg/dL Normal 0.2-1.0 Alkaline Phosphatase 114 U/L High 34-104 Alt 20 U/L Normal 7-52 Ast 18 U/L Normal 13-39 Egfr Non- 61.0 >60 Egfr 73.9 >60 1 Laboratory test 03/22/2019 [facility] TSH (Thyroid 0.97 Normal 0.34-5.60 finding [phone] Stim Horm) mcIU/mL Fibrin D-dimer 11/02/2018 N2N/CCD Import Fibrin D-dimer 1.09 Feu measurement Feu measurement in platelet poor in platelet pl poor plasma (mass/volume) Serum or plasma 11/02/2018 N2N/CCD Import Serum or plasma 93 74-106 glucose glucose measurement measurement (mass/volume) (mass/volume) Serum or plasma 11/02/2018 N2N/CCD Import Serum or plasma 16 7-18 urea nitrogen urea nitrogen measurement measurement (mass/vo (mass/volume) Automated blood 11/02/2018 N2N/CCD Import Automated blood 0.00 nucleated nucleated erythrocyte count erythrocyte (count count (count/volume) Serum or plasma 11/02/2018 N2N/CCD Import Serum or plasma 1.0 0.6-1.3 creatinine creatinine measurement measurement (mass/volum (mass/volume) Estimated 11/02/2018 N2N/CCD Import Estimated 57 >60 glomerular glomerular filtration rate filtration rate (GFR) non-Afr (GFR) non- GFR/Bsa 11/02/2018 N2N/CCD Import GFR/Bsa >60 >60 pred.black SerPl pred.black MDRD-ArVRat SerPl MDRD-ArVRat Serum or plasma 11/02/2018 N2N/CCD Import Serum or plasma 16.0 urea urea nitrogen/creatini nitrogen/creati ne mass rati nine mass ratio Sodium SerPl-sCnc 11/02/2018 N2N/CCD Import Sodium 139 136-145 SerPl-sCnc Serum or plasma 11/02/2018 N2N/CCD Import Serum or plasma 4.2 3.5-5.1 potassium potassium measurement measurement Serum or plasma 11/02/2018 N2N/CCD Import Serum or plasma 104 98-107 chloride chloride measurement measurement Co2 SerPl-sCnc 11/02/2018 N2N/CCD Import Co2 SerPl-sCnc 29 21-32 Serum or plasma 11/02/2018 N2N/CCD Import Serum or plasma 6 Low 8-16 anion gap anion gap Serum or plasma 11/02/2018 N2N/CCD Import Serum or plasma 8.9 8.5-10.1 calcium calcium measurement measurement (mass/volume) (mass/volume) Serum or plasma 11/02/2018 N2N/CCD Import Serum or plasma 7.5 6.4-8.2 protein protein measurement measurement (mass/volume) (mass/volume) Serum or plasma 11/02/2018 N2N/CCD Import Serum or plasma 3.4 3.4-5.0 albumin albumin measurement measurement (mass/volume) (mass/volume) Serum globulin 11/02/2018 N2N/CCD Import Serum globulin 4.1 1.9-4.3 measurement by measurement by calculation calculation (mass/vo (mass/volume) Serum or plasma 11/02/2018 N2N/CCD Import Serum or plasma 0.8 albumin/globulin albumin/globuli mass ratio n mass ratio Serum or plasma 11/02/2018 N2N/CCD Import Serum or plasma 0.5 0.2-1.0 total bilirubin total bilirubin measurement measurement (mass/ (mass/volume) Serum or plasma 11/02/2018 N2N/CCD Import Serum or plasma 14 Low 15-37 aspartate aspartate aminotransferase aminotransferas measure e measurement (enzymatic activity/volume ) Serum or plasma 11/02/2018 N2N/CCD Import Serum or plasma 23 12-78 alanine alanine aminotransferase aminotransferas measureme e measurement (enzymatic activity/volume ) Serum or plasma 11/02/2018 N2N/CCD Import Serum or plasma 128 High 45- 117 alkaline alkaline phosphatase phosphatase measurement ( measurement (enzymatic activity/volume ) Aot Request 11/02/2018 [facility] Aot Request Test(s) 2, [address] added [address] [place] [address] [phone] Tests to be added: ddimer * Miscellaneous 11/02/2018 N2N/CCD Import * Miscellaneous Test(s) studies (set) studies (set) added CBC W/Automated 11/02/2018 [facility] White Blood Count 11.8 K/uL High 3.1-[address] [place], [place] [id number] [phone] Red Blood Count 3.87 M/uL Low 3.90-5.40 [...] 40.4-72.8 Lymph % 11.3 % Low 20.0-42.0 Mcdowell % 9.8 % Normal 4.3-13.2 Eo% 2.9 % Normal 0.0-6.6 Bas% 0.6 % Normal 0.0-1.1 Immature Grans 0.7 % Normal 0.0-5.0 NRBC % 0.0 /100WBC < 10/ 100 WBC Neut# 8.82 K/uL High 1.8-7.0 Lymph # 1.34 K/uL Normal 1.0-4.0 Mcdowell # 1.16 K/uL High 0.3-0.9 Eos # 0.34 K/uL Normal 0.0-0.5 Baso # 0.07 K/uL Normal 0.0-0.1 Immature Grans Absolute 0.08 K/uL NRBC # 0.00 K/uL Laboratory test 11/02/2018 [facility] D-Dimer, 1.09 Critical [address] Quantitative ug/mL high [place], [place] [id number] [phone] Comprehensive 11/02/2018 [facility] Glucose 93 mg/dL Normal 74- Metabolic Panel [address] [place] [address] [phone] BUN 16 mg/dL Normal 7-18 Creatinine 1.0 mg/dL Normal 0.6-1.3 Glom Filtration Rate, Estimate 57 mL/min >60 If >60 mL/min >60 5 BUN/Creat 16.0 ratio Sodium 139 mmol/L Normal [...] Normal 0.2-1.0 Sgot/Ast 14 U/L Low 15-37 6 SGPT/Alt 23 U/L Normal 12-78 Alkaline Phosphatase 128 U/L High 45-117 Laboratory test 11/02/2018 [facility] Troponin-I < 0.015 [address] ng/[place] [address] [phone] Automated 11/02/2018 N2N/CCD Import Automated 11.8 High [...] distribution width ratio width ratio Comprehensive 10/24/2018 [facility] Sodium 141 Normal 135-14 Metabolic Panel [phone] mmol/L 5 Potassium 4.6 mmol/L Normal 3.5-5.0 [...] Egfr Non- 58.1 >60 Egfr 70.2 >60 8 Laboratory test 10/24/2018 [facility] LDL Cholesterol 117 mg/dL 9 finding [phone] Direct Folate > 20.00 ng/mL >3.99 Vitamin B12 318 pg/mL Normal 180-914 10 CBC W/Automated 10/24/2018 [facility] White 10.4 Normal 3.5-10.8 Diff [phone] Blood 10^3/uL Count Red Blood Count 4.05 [...] Blood Cells % 0.0 Laboratory test 10/13/2018 [facility] Folate > 20.00 ng/mL >3.99 finding [phone] Vitamin B12 381 pg/mL Normal 180-914 11 Lipid Profile 10/13/2018 [facility] Triglycerides 87 mg/dL 12 (Trig/Chol/HDL) [phone] Cholesterol 182 mg/dL 13 HDL Cholesterol 66.5 mg/dL 14 LDL Cholesterol 98 mg/dL 15 Comp Metabolic 10/13/2018 [facility] Sodium 142 mmol/ L Normal 135-145 Panel [phone] Chloride 107 mmol/L Normal 101-111 Co2 Carbon [...] Egfr Non- 61.0 >60 Egfr 73.9 >60 16 Potassium 5.1 mmol/L High 3.5-5.0 Anion Gap 6 mmol/L Normal 2-11 CBC Auto 10/13/2018 [facility] White Blood 11.2 10^3/ uL High 3.5-10.8 Diff [phone] Count Red Blood Count 4.03 10^6/uL Normal [...] and t and target amplification method 1 Because ethnic data is not always readily [...] 15-29 5 Kidney failure <15 (or dialysis) 2 TROUBLE BREATHING 3 Tests: ddimer Instructions: 4 <=0.49 ug/mL - Low likelihood of DIC, DVT or Pulmonary Embolism >0.49 ug/mL - Additional testing should be done to rule out DIC, DVT, or Pulmonary embolism as clinically indicated. ([facility] has established a 97.89% negative predictive value for thrombotic disease when a cutoff value of 0.5 ug/mL is used.) 5 Note: Persistent reduction for 3 months or more in an eGFR <60 mL/min/1.73 m2 defines CKD. Patients with eGFR values >/=60 mL/min/1.73 m2 may also have CKD if evidence of persistent proteinuria is present. The original MDRD equation for estimated GFR is not valid for patients less than 18 years of age. Additional information may be found at www.kdoqi.org. 6 Values below the stated reference ranges of AST and ALT can be seen in normal populations. Clinical correlation is suggested. 7 0.0 - 0.045 ng/mL: Normal 0.046 - 0.5 ng/mL: Suggestive 0.6 - 1.5 ng/mL: Consistent 8 Because ethnic data is not always readily [...] 15-29 5 Kidney failure <15 (or dialysis) 9 Desirable: <100 Near Optimal: 100-129 Borderline High: 130-159 High: 160-189 Very High: >189 10 Normal Range 180 to 914 Indeterminate Range 145 to 180 Deficient Range <145 11 Normal Range 180 to 914 Indeterminate Range 145 to 180 Deficient Range <145 12 Desirable: <150 Borderline High: 150-199 High: 200-499 Very High: >500 13 Desirable: <200 Borderline High: 200-239 High: >239 14 Low: <40 Desirable: 40-60 High: >60 15 Desirable: <100 Near Optimal: 100-129 Borderline High: 130-159 High: 160-189 Very High: >189 16 Because ethnic data is not always readily [...] dialysis) Procedures Date Code Description Status 02/04/2019 52130 Radiology, Elbow Complete Completed 02/04/2019 01300 Injection:Tendon Sheath,Lig. Cyst Completed 12/15/2018 [id number] Mammogram Completed 10/26/2018 99836 Brief Emotional/Behav Assessment W/ Scoring Doc Per Completed Standard Inst 10/22/2018 79537 Spirometry Completed 07/26/2014 [id number] Colonoscopy Completed 01/31/2011 [id number] Colonoscopy Completed 06/18/2005 [id number] Colonoscopy Completed 08/25/2000 [id number] Colonoscopy Completed Medical Devices Description No Information Available Encounters Type Date Location Provider Dx Diagnosis Office Visit 03/19/2019 Primary Care Alessio Whatley J44.9 Chronic obstructive 10:00a Office MD pulmonary disease, unspecified K21.9 Gastro-esophageal reflux disease without esophagitis M54.6 Pain in thoracic spine I10 Essential (primary) hypertension E78.5 Hyperlipidemia, unspecified R61 Generalized hyperhidrosis Office Visit 02/04/2019 10:00a Orthopaedic Office Stacey Giron, M25.522 Pain in left MD elbow M77.12 Lateral epicondylitis, left elbow M19.012 Primary osteoarthritis, left shoulder Office Visit 01/29/2019 9:30a Walk In [facility], M25.512 Pain in left Clinic Tayla Kelley, HEAD CORRECTION OFFICER shoulder T80.62xA Other serum reaction due to vaccination, initial encounter Office Visit 01/19/2019 10:00a Pulmonology Aida Bryant J44.9 Chronic obstructive PA pulmonary disease, unspecified K21.9 Gastro-esophageal reflux disease without esophagitis R91.1 Solitary pulmonary nodule Office Visit 12/04/2018 11:30a Primary Care Jaye Ness M54.6 Pain in thoracic Office H., PA spine I10 Essential (primary) hypertension N18.3 Chronic kidney disease, stage 3 (moderate) Z12.31 Encntr screen mammogram for malignant neoplasm of breast Office Visit 11/03/2018 1:30p Primary Care Ashley Slaughter M54.6 Pain in Office MS, HEAD CORRECTION OFFICER-C, CNM thoracic spine I10 Essential (primary) hypertension Office Visit 10/26/2018 9:00a Primary Care Ashley Slaughter J44.9 Chronic Office MS, HEAD CORRECTION OFFICER-C, CNM obstructive pulmonary disease, unspecified N18.3 Chronic [...] initial encounter 01/19/2019 J44.9 Chronic obstructive pulmonary Aida Bryant PA disease, unspecified 01/19/2019 K21.9 Gastro-esophageal reflux [...] M54.6 Pain in thoracic spine Ashley Slaughter, , HEAD CORRECTION OFFICER-C, CNM 11/03/2018 I10 Essential (primary) hypertension Ashley Slaughter, MS, HEAD CORRECTION OFFICER-C , CNM 10/26/2018 J44.9 Chronic obstructive pulmonary Ashley Slaughter, MS, HEAD CORRECTION OFFICER-C, disease, unspecified CN 10/26/2018 N18.3 Chronic kidney disease, stage 3 Ashley Slaughter, MS, HEAD CORRECTION OFFICER- C, (moderate) CNM 10/26/2018 G25.81 Restless legs syndrome Ashley Slaughter, MS, HEAD CORRECTION OFFICER-C, [facility] 10/26/2018 E87.5 Hyperkalemia Ashley Slaughter, MS, HEAD CORRECTION OFFICER-C, CNM 10/26/2018 E78.5 Hyperlipidemia, unspecified Ashley Slaughter, MS, HEAD CORRECTION OFFICER-C, CNM 10/26/2018 E55.9 Vitamin D deficiency, unspecified Ashley Slaughter, MS, HEAD CORRECTION OFFICER-C, CNM 10/26/2018 F33.1 Major depressive disorder, Ashley Slaughter, MS, HEAD CORRECTION OFFICER-C, recurrent, moderate CNM 10/22/2018 J44.9 Chronic obstructive pulmonary Toby Blanchard MD disease, unspecified 10/08/2018 R10.10 Upper abdominal pain, unspecified Arian Beltran MD Plan of Treatment Future Appointment(s):06/18/2019 10:00 am - Alessio Whatley MD at Primary Care Mubhvb1805/06/2019 9:30 am - Stacey Giron MD at Orthopaedic Gjolep7507/21/2019 1:00 pm - Rodriguez Barr MD at Jsvifduwcfl23/06/2019 - Alessio Whatley MDJ44.9 Chronic obstructive pulmonary disease, unspecifiedComments:- Continue with current inhalers.- Protect yourself from others with respiratory illness.- Stay wellhydrated and use good hand hygiene.- Call for office visit if you have acute symptoms.K21.9 Gastro-esophageal reflux disease without esophagitisComments:- GERD well managed, continue with current medications.- Follow up with Dr Rocha as [id number] Pain in thoracic spineComments:- Follow up with [...] fat diet.- Continue to work on weight [id number] Generalized hyperhidrosisComments:- Get labs prior to next visit.AllComments:- Inquire about bone density screening next visitFollow up:3 months Functional Status Description No Information Available Mental Status Description No Information Available Referrals Refer to Dr Reason for Referral Status Appt Date Stacey Giron MD Left shoulder pain, previous humorous Scheduled [address], [address] [place] [address] [phone] [facility] Lumbar Spinal stenosis with Closed Radiculopathy pls sent last spine and wellness notes 11/19/18 faxed notes... LE 11/19/18 faxed notes... LE
[2019-04-08 08:08] VITALS: BP 130/52
--- NOTE | 2019-04-08 08:36 | UC ---
Respiratory Complaint HPI - HPI Summary HPI Summary: Pt presents with c/o wheezing that has worsened over the last 5 weeks. Pt has hx of copd and wears O2 with nasal cannula at 3L - History of Current Complaint Chief Complaint: UCRespiratory Stated Complaint: COUGH Time Seen by Provider: 04/08/19 08:13 Hx Obtained From: Patient Hx Last Menstrual Period: n/a ?: No Onset/Duration: Gradual Onset, Lasting Weeks, Still Present, Worse Since - onset Timing: Constant Severity Initially: Mild Severity Currently: Mild Pain Intensity: 0 Character: Cough: Nonproductive Aggravating Factors: Deep Breaths, Recumbent Position Alleviating Factors: Nothing Associated Signs And Symptoms: Positive: Wheezing - Risk Factors Pulmonary Embolism Risk Factors: Negative Cardiac Risk Factors: Negative Pseudomonas Risk Factors: Chronic Lung Disease Tuberculosis Risk Factors: Negative - Allergies/Home Medications Allergies/Adverse Reactions: Allergies Allergy/AdvReac Type Severity Reaction Status Date / Time grass and dogs Allergy Unknown Uncoded 04/08/19 08:03 Reaction Details PMH/Surg Hx/FS Hx/Imm Hx Previously Healthy: Yes Respiratory History: COPD - Surgical History Surgical History: Yes Surgery Procedure, Year, and Place: Appendectomy. Tubal ligation. Bilateral cataracts 1989. spinal nerve burning - Family History Known Family History: Positive: Cardiac Disease, Hypertension, Respiratory Disease - Social History Occupation: Retired Lives: With Family Alcohol Use: None Alcohol Amount: 3-4 beers Substance Use Type: None Smoking Status (MU): Former Smoker Type: Cigarettes Amount Used/How Often: 2 PPD Length of Time of Smoking/Using Tobacco: 52 Years Have You Smoked in the Last Year: No When Did the Patient Quit Smoking/Using Tobacco: 2016 - Immunization History Most Recent Influenza Vaccination: December 2015 Review of Systems All Other Systems Reviewed And Are Negative: Yes Constitutional: Positive: Negative Skin: Positive: Negative Eyes: Positive: Negative ENT: Positive: Negative Respiratory: Positive: Other - wheezing Cardiovascular: Positive: Negative Gastrointestinal: Positive: Negative Genitourinary: Positive: Negative Motor: Positive: Negative Neurovascular: Positive: Negative Musculoskeletal: Positive: Negative Neurological: Positive: Negative Psychological: Positive: Negative Is Patient Immunocompromised?: No Physical Exam Triage Information Reviewed: Yes Appearance: Ill-Appearing Vital Signs: Initial Vital Signs Temp 97.3 F 04/08/19 08:04 Pulse 86 04/08/19 08:04 Resp 22 04/08/19 08:04 BP 130/52 04/08/19 08:04 Pulse Ox 97 04/08/19 08:04 Vital Signs Reviewed: Yes Eye Exam: Normal ENT Exam: Normal Dental Exam: Normal Neck exam: Normal Respiratory: Positive: Decreased breath sounds, Wheezing Cardiovascular Exam: Normal Musculoskeletal Exam: Normal Neurological Exam: Normal Psychological Exam: Normal Skin Exam: Normal Diagnostics - Radiology No standard instances Radiology Interpretation Completed By: Radiologist - negative for pneumonia Respiratory Course/Dx - Differential Dx/Diagnosis Differential Diagnosis/HQI/PQRI: Bronchitis, Exacerbation Of COPD Provider Diagnosis: COPD exacerbation Discharge ED - Sign-Out/Discharge Documenting (check all that apply): Patient Departure All imaging exams completed and their final reports reviewed: Yes - Discharge Plan Condition: Stable Disposition: HOME Prescriptions: predniSONE TAB* [Deltasone 20 MG TAB*] 60 mg PO DAILY #12 tab Patient Education Materials: Acute Cough (ED), Wheezing (ED) Referrals: Alessio Whatley MD [Primary Care Provider] - As Soon As Possible Additional Instructions: Please follow up with your PCP and bottled beverage inspector as soon as possible. - Billing Disposition and Condition Condition: STABLE Disposition: Home - Attestation Statements Provider Attestation: Per institutional requirements, I have reviewed the chart, however, I was not consulted specifically or made aware of this patient by the midlevel provider. I did not personally evaluate, interact with , or disposition this patient.
== END 2019-04-08 09:15 | disposition home or self-care (01) ==
LOC: UCCORT 07:51
DX: J44.1 Chronic obstructive pulmonary disease with (acute) exacerbation (principal); Z87.891 Personal history of nicotine dependence; Z91.09 Other allergy status, other than to drugs and biological substances
CPT/HCPCS: 71046; 99212; G0463